=== PATIENT | male | born 1955 | race Caucasian/White ===

== ENCOUNTER 2019-01-06 12:14 | Emergency (ER) | payer OTHER, SELFPAY ==
[2019-01-06 12:32] VITALS: BP 119/72; PULSE 78; RESP 18; TEMP 36.9; O2SAT 98; BMI 25.7
--- NOTE | 2019-01-06 12:53 | ED.SKABFB ---
HPI - Skin/Abscess/Foreign Bdy General Chief complaint: Skin/Abscess/Foreign Body Stated complaint: dizziness/on antibiotics today Time Seen by Provider: 01/06/19 12:24 Source: patient Mode of arrival: ambulatory Limitations: no limitations History of Present Illness HPI narrative: Patient is an otherwise healthy 63-year-old male. He is currently on antibiotics a few started on these medications after he sustained a left arm cellulitis while in [facility]. He spent 4 days in the hospital there. He is here today because he feels like he was just feeling off balance today. No vertigo sensation. No other associated symptoms. He was concerned that potentially the antibiotics are causing the symptoms or that the infection is arm is getting worse. He does state that the redness and pain and swelling that was in his left arm his greatly improved since being on the antibiotics. Related Data Previous Rx's Medication Instructions Recorded azithromycin [Zithromax] 250 - 500 mg PO QDAY #6 tab 02/13/17 codeine-guaifenesin 5 ml PO QHS #60 ml 02/13/17 Allergies Allergy/AdvReac Type Severity Reaction Status Date / Time No Known Allergies Allergy Uncoded 08/16/17 12:04 Review of Systems Constitutional Constitutional: Denies fever(s), Denies headache(s), Denies lethargy and Denies weakness ENT Ears, Nose, Mouth, and Throat: Denies vertigo, Reports dizziness, Denies facial pain, Denies headache(s), Denies hearing loss, Denies nose pain, Reports disequilibrium, Denies sinus pain, Denies sinus pressure, Denies sore throat and Denies throat swelling Cardiovascular Cardiovascular: Denies chest pain, Denies palpitations and Denies dyspnea Respiratory Respiratory: Denies dyspnea Gastrointestinal Gastrointestinal: Denies abdominal pain, Denies nausea and Denies vomiting Musculoskeletal Musculoskeletal: Denies myalgias and Denies arthralgias Integumentary/Breasts Comments: Improving redness and swelling to the left forearm Neurologic Neurologic: Denies behavioral changes, Denies burning sensations, Denies vertigo, Reports dizziness, Denies headache(s), Reports lack of coordination, Denies convulsions, Denies sensory deficit, Reports disequilibrium and Denies weakness Psychiatric Psychiatric: Denies behavioral changes Endocrine Endocrine: Denies palpitations Hematologic/Lymphatic Hematologic/Lymphatic: Denies easy bleeding and Denies easy bruising Allergic/Immunologic Allergic/Immunologic: Denies urticaria and Denies throat swelling [facility] Medical History Cellulitis (Inactive) Social History Smoking Status: Former smoker Social History Smoking Status: Former smoker Exam Initial Vital Signs Initial Vital Signs: Vital Signs Temperature 98.5 F 01/06/19 12:32 Pulse Rate 78 01/06/19 12:32 Respiratory Rate 18 01/06/19 12:32 Blood Pressure 119/72 01/06/19 12:32 Pulse Oximetry 98 01/06/19 12:32 Const General: cooperative, comfortable, well developed, well groomed and No acute distress Orientation: alert, awake and oriented x3 HENMT Head: normal to inspection and normocephalic Ears: TM normal on the right and TM abnormal bulging on the left Eyes Pupils: PERRL EOM: EOM intact bilaterally Resp Effort & Inspection: normal respiratory effort Auscultation: clear to auscultation bilaterally Cardio Rate: regular rate Rhythm: regular rhythm Pulses: radial pulses present GI Inspection: non-distended Palpation: soft Back/Spine/Pelvis Back: No CVA tenderness Skin Other: Patient with some induration and orange peel like appearance to the proximal aspect of his left forearm. There is minimal surrounding cellulitis. No drainage. No warmth. Neuro General: alert, awake and oriented x3 Cranial Nerves: CN's II-XI intact bilaterally Cognition: normal cognition Speech: speech normal Gait: normal gait Motor: muscle tone normal throughout Sensory Exam: no sensory deficits noted Extrem General: normal to inspection and capillary refill normal Psych Appearance: grossly normal and well kempt Course Vital Signs Vital signs: Vital Signs - 8 hr 01/06/19 12:32 Temperature 98.5 F Pulse Rate 78 Respiratory Rate 18 Blood Pressure 119/72 Pulse Oximetry 98 MDM - Skin/Abscess/Foreign Bdy MDM Narrative Medical decision making narrative: The cellulitis in his left arm is improving per his report. I do not suspect that this is the cause of his symptoms. He does have fluid behind his left tympanic membrane which very well could be the cause of his symptoms. We discussed the use of decongestants. He is going to continue the antibiotics. I have low suspicion for CVA or TIA. No hold on further workup for now. Will hold on any radiologic studies for now. Patient given return precautions follow-up instructions. He expressed understanding and agreement plan. Discharge Plan Departure Patient Disposition: Home Clinical Impression: Lightheadedness Discharge Date/Time: 01/06/19 12:59 Instructions: DI for Dizziness-Nonvertigo Activity Restrictions/Additional Instructions: Continue all of your medications as directed. I do recommend that you start taking either Claritin or Apple or Zyrtec. You can buy these [id number]. Keep your follow-up appointment that you have on Monday with your primary provider. Return to the emergency department for any new or worsening symptoms Prescriptions: No Action azithromycin [Zithromax] 250 MG tablet 250 - 500 mg PO QDAY Qty: 6 RF: 0 codeine-guaifenesin 100 MG/10 MG liquid 5 ml PO QHS Qty: 60 RF: 0 Referrals: Rylie Morales MD [Primary Care Provider] -
== END 2019-01-06 12:59 | disposition home or self-care (01) ==
PROVIDERS: Emergency Provider Emergency Medicine; PCP Student in an Organized Health Care Education/Training Program
DX: R42 Dizziness and giddiness (principal)
CPT/HCPCS: 99282

== ENCOUNTER → 2019-01-21 06:02 | Outpatient (CLI) | payer OTHER, SELFPAY ==
--- NOTE | 2019-01-21 | DI.MRI.S_ITS ---
PROCEDURE: MR ELBOW LT WO/W CON INDICATIONS: LEFT ELBOW CELLULITIS,POSSIBLE SEPTIC ARTHRITIS TECHNIQUE: Noncontrast coronal proton density fast spin echo and T2 fast spin echo with fat saturation, coronal T1 spin echo with fat saturation, axial and sagittal T1 spin echo and T2 fast spin echo with fat saturation through the elbow. Post-contrast coronal, axial, and sagittal T1 spin echo with fat saturation through the elbow. COMPARISON: None. FINDINGS: Image quality: Suboptimal related to motion artifact on nearly every imaging sequence Bones: There is mild focal marrow edema evident involving the proximal aspect of the olecranon process. Corresponding subtle marrow enhancement is present. There is no displaced fracture. No dislocations or suspicious osseous lesions are identified. No significant joint effusion or significant synovial enhancement is appreciated. Soft tissues: Mild to moderate subcutaneous edema is identified along the posterior aspect of the elbow. No drainable fluid collections or suspicious soft tissue enhancement is evident. However, there is enhancement of the soft tissues at the site of this soft tissue edema. Increased signal and thickening involving the distal triceps tendon is present. No significant tearing of the tendon is appreciated. The distal biceps tendon and brachialis tendons are within normal limits. The common flexor and extensor tendons are intact, but demonstrates slight increase signal at their origins. The radial and ulnar collateral ligaments are intact. No significant atrophy of the imaged muscles are present. A small mildly prominent lymph node appears to be present along the medial aspect of the distal humerus. IMPRESSION: 1. Subcutaneous edema in the posterior aspect of the elbow is compatible with cellulitis. No drainable abscess. 2. Mild marrow edema of the olecranon process is concerning for possible developing osteomyelitis given the patient's history of cellulitis. Please correlate clinically. 3. Tendinitis of the distal triceps tendon may be infectious in etiology. 4. No evidence of infected synovitis. 5. Mild tendinopathy involving the common flexor and common extensor tendons. Dictated by: Jose Roberto Bentley M.D. on 01/21/2019 at 14:37 Approved by: Jose Roberto Bentley M.D. on 01/21/2019 at 14:46
== END ==
PROVIDERS: PCP Student in an Organized Health Care Education/Training Program; Visit Provider Student in an Organized Health Care Education/Training Program
DX: L03.114 Cellulitis of left upper limb (principal); M77.8 Other enthesopathies, not elsewhere classified
CPT/HCPCS: 73223; A9579

== ENCOUNTER → 2023-08-31 15:16 | Outpatient (CLI) | payer MEDICARE, OTHER, SELFPAY ==
--- NOTE | 2023-08-31 15:19 | DI.MRI.S_ITS ---
PROCEDURE: MR WRIST RT WO CON INDICATIONS: closed nondisplaced fracture of scaphoid rt wrist TECHNIQUE: Noncontrast coronal proton density fast spin echo and T2 fast spin echo with fat saturation; coronal 3-D gradient echo, axial T1 spin echo and T2 fast spin echo with fat saturation, sagittal T1 spin echo through the wrist. COMPARISON: [facility], CT, CT UPPER EXTREMITY RIGHT WITHOUT CONTRAST, 08/09/2023, 14:21. [facility] [place], CR, XR WRIST 3+ VIEWS RIGHT, 08/31/2023, 9:21. FINDINGS: Image quality: Excellent. Bones and cartilage: Minimally displaced fracture of the scaphoid waist with mild volar angulation of distal fracture fragment. There is associated marked marrow edema the scaphoid, acute. Additional multifocal subchondral T2 hyperintensity within the proximal lunate and within the capitate, nonspecific. There is severe degenerative changes of the 1st carpometacarpal joint with subchondral cystic changes and marrow edema in the 1st metacarpal base. Ossification dorsal to the 1st carpal metacarpal joint, presenting for injury. Mild marrow edema the capitate with the fracture line, favored to represent a marrow contusion. Patchy mild T2 hyperintensity in the distal radius metadiaphysis, incompletely evaluated and is only seen on the coronal view. In addition, there is a nondisplaced fracture of the hook of the hamate with associated marrow edema, acute. Carpal ligaments: The lunotriquetral ligament is intact. Tear of the scapholunate ligament. No significant widening of the scapholunate interval. Triangular fibrocartilage complex: Central disc perforation. Tendons and soft tissues: Mild tenosynovitis of the flexor tendon prior to entering the carpal tunnel. Mild tenosynovitis of the 2nd extensor tendon at the level of the distal radius. Low-grade interstitial tear of the extensor carpi ulnaris at the level of the ulnar groove. Small intracarpal joint effusion. Small amount of effusion within the distal radioulnar joint. IMPRESSION: 1. Minimally displaced fracture of the scaphoid waist, acute. 2. Nondisplaced fracture of the hook of the hamate, acute. 3. Mild marrow contusion of the capitate. 4. Severe degenerate change of the 1st carpometacarpal joint. 5. Tear of the scapholunate ligament with widening of the scapholunate interval. 6. Central disc perforation of the TFCC. 7. Patchy T2 hyperintensity in the distal radial diaphysis, incompletely evaluated. Dictated by: Susanna Santiago M.D. on 08/31/2023 at 16:27 Approved by: Susanna Santiago M.D. on 08/31/2023 at 16:41
== END ==
LOC: MRI 15:19
PROVIDERS: PCP Family Medicine; Referring Provider Physician Assistant Surgical; Visit Provider Physician Assistant Surgical
DX: S62.014A Nondisplaced fracture of distal pole of navicular [scaphoid] bone of right wrist, initial encounter for closed fracture (principal); S62.154A Nondisplaced fracture of hook process of hamate [unciform] bone, right wrist, initial encounter for closed fracture; S60.211A Contusion of right wrist, initial encounter; M65.831 Other synovitis and tenosynovitis, right forearm; M25.431 Effusion, right wrist; S63.591A Other specified sprain of right wrist, initial encounter; X58.XXXA Exposure to other specified factors, initial encounter
CPT/HCPCS: 73221

== ENCOUNTER → 2023-09-22 08:16 | Outpatient (CLI) | payer MEDICARE, OTHER, SELFPAY ==
--- NOTE | 2023-09-22 08:19 | DI.MRI.S_ITS ---
PROCEDURE: MR SHOULDER RT W CON INDICATIONS: RIGHT SHOULDER PAIN TECHNIQUE: After the administration of 12 mL of dilute intra-articular Gadolinium contrast, oblique coronal T1 and T2 spin echo with fat saturation, oblique sagittal T1 spin echo with and without fat saturation, oblique sagittal T2 fast spin echo with fat saturation, axial T1 spin echo with fat saturation through the shoulder. COMPARISON: [facility] [place], CR, XR SHOULDER 2+ VIEWS RIGHT, 08/31/2023, 9:52. FINDINGS: Image quality: Excellent. Rotator cuff: In the supraspinatus, there is focal, low grade, articular sided tear at the footprint (series 8, image 11). Mild tendinosis of the supraspinatus and infraspinatus. No tear of the infraspinatus. The teres minor is unremarkable. The subscapularis is unremarkable. No fatty atrophy or muscle edema. Bones and bursae: Mild degenerative changes acromioclavicular joint, with a small inferior projecting osteophyte, resulting in mass effect on the myotendinous junction of the supraspinatus. Type 2 acromion. No os acromiale. Trace subacromial bursitis. Multiple punctate subchondral cystic changes in the humeral head, reactive. No acute fracture. No focal chondral defect. Capsule and soft tissues: Superior labral tear. The extra-articular biceps tendon, and the intra-articular biceps tendon are unremarkable. Intra-articular contrast distends the glenohumeral joint. Borderline enlarged right axillary lymphadenopathy, measuring 1.0 cm in short axis (series 11, image 22). IMPRESSION: 1. Low-grade tear of the supraspinatus. 2. Mild degenerative change of the acromioclavicular joint. 3. Superior labral tear. 4. Borderline enlarged right axillary lymphadenopathy, nonspecific. Dictated by: Susanna Santiago M.D. on 09/22/2023 at 12:45 Approved by: Susanna Santiago M.D. on 09/22/2023 at 12:55
--- NOTE | 2023-09-22 08:19 | DI.RAD.S_ITS ---
PROCEDURE: FL SHOULDER INJECTION MR/CT RT INDICATIONS: RIGHT SHOULDER PAIN COMPARISON: [facility] [place], MR, MR SHOULDER RT W CON, 09/22/2023, 8:39. TECHNIQUE: The indications, alternatives, benefits, risks, and complications of the procedure were explained to the patient. Written informed consent was obtained and placed in the chart. The shoulder was examined fluoroscopically and a site for needle placement chosen for entry into the glenohumeral joint from an anterior approach. The skin was prepped and draped in a sterile fashion, and 1% lidocaine infiltrated from skin down to joint capsule. A spinal needle was inserted into the glenohumeral joint, and a small amount of iodinated contrast media injected to confirm intra-articular placement of the needle tip. This was followed by approximately 12 mL dilute solution of a gadolinium containing MR contrast agent. The needle was removed and a dressing was applied. The patient was given postprocedural instructions and sent to the MR suite for MR imaging. FINDINGS: A single fluoroscopic spot image demonstrates intra-articular location of injected iodinated contrast. IMPRESSION: Successful fluoroscopically guided administration of dilute Gadolinium solution into the shoulder joint for MR arthrogram. Dictated by: Yang Nathan M.D. on 09/22/2023 at 13:20 Approved by: Yang Nathan M.D. on 09/22/2023 at 13:25
[2023-09-22] MEDS: LIDOCAINE 1% 20 ML INJ (09:21)
[2023-09-22] MEDS: SODIUM CHLORIDE 0.9 % 20 ML VIAL IV (09:21)
== END ==
PROVIDERS: PCP Family Medicine; Referring Provider Physician Assistant; Visit Provider Physician Assistant
DX: M75.101 Unspecified rotator cuff tear or rupture of right shoulder, not specified as traumatic (principal); S43.431A Superior glenoid labrum lesion of right shoulder, initial encounter
CPT/HCPCS: 23350; 73040; 73222; A9579; Q9967

== ENCOUNTER → 2023-12-25 13:33 | Outpatient (CLI) | payer MEDICARE, OTHER, SELFPAY ==
--- NOTE | 2023-12-25 13:35 | DI.MRI.S_ITS ---
PROCEDURE: MR WRIST RT WO CON INDICATIONS: FRACTURE FOLLOW UP. RIGHT WRIST PAIN TECHNIQUE: Noncontrast coronal proton density fast spin echo and T2 fast spin echo with fat saturation; coronal 3-D gradient echo, axial T1 spin echo and T2 fast spin echo with fat saturation, sagittal T1 spin echo through the wrist. COMPARISON: [facility] [place], CR, XR WRIST 3+ VIEWS RIGHT, 10/04/2023, 8:49. [facility] [place], CR, XR WRIST 3+ VIEWS RIGHT, 12/18/2023, 8:50. [facility], , MR WRIST RT WO CON, 08/31/2023, 15:27. FINDINGS: Image quality: Excellent. Bones and cartilage: Minimally displaced fracture of the scaphoid waist again seen with surrounding osseous edema. No signs of proximal pole osteonecrosis or collapse. Nondisplaced fracture of the hamate hook appears partially healed. Previously seen osseous contusion in the capitate has resolved. No residual [id number] signal in the distal radial diaphysis. Severe degenerative changes at the 1st carpometacarpal joint. Calcification adjacent to the 1st carpometacarpal joint may be degenerative or secondary to remote prior trauma. Small moderate joint effusions are again seen throughout the wrist. Carpal ligaments: Scapholunate ligament again noted to be torn with minimal widening of the scapholunate interval. Lunotriquetral ligament is intact. On sagittal images, the pisohamate ligament appears intact. Triangular fibrocartilage complex: Full-thickness perforation of the central triangular fibrocartilage disc. Tendons and soft tissues: The carpal tunnel structures appear normal, including the median nerve. The ulnar nerve appears normal within Guyon's canal. Partial intrasubstance tearing of the extensor carpi ulnaris tendon again seen at the level of the ulnar groove with mild tenosynovitis. Mild 2nd part mint tenosynovitis againt noted. The remaining extensor tendon compartments demonstrate normal morphology, without pathologic tendon sheath fluid. No soft tissue ganglion cysts. IMPRESSION: 1. Minimally displaced fracture at the waist of the scaphoid is again seen with mild progressive healing changes. The fracture line is still visualized and there is surrounding osseous edema. No signs of proximal pole osteonecrosis. 2. Nondisplaced fracture of the hamate hook is less prominent without significant residual surrounding edema. 3. Scapholunate ligament tearing again seen with very mild widening of the scapholunate interval. 4. Full-thickness perforation of the central triangular fibrocartilage disc. 5. 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 6. Mild partial intrasubstance tearing of the extensor carpi ulnaris tendon and mild tenosynovitis. Approved by: Robert Garcia M.D. on 12/26/2023 at 15:22
== END ==
LOC: MRI 13:34
PROVIDERS: PCP Family Medicine; Referring Provider Orthopaedic Surgery; Visit Provider Orthopaedic Surgery
DX: S52.124D Nondisplaced fracture of head of right radius, subsequent encounter for closed fracture with routine healing (principal); S66.811A Strain of other specified muscles, fascia and tendons at wrist and hand level, right hand, initial encounter; M18.11 Unilateral primary osteoarthritis of first carpometacarpal joint, right hand; M65.831 Other synovitis and tenosynovitis, right forearm; X58.XXXD Exposure to other specified factors, subsequent encounter
CPT/HCPCS: 73221